=== PATIENT | male | born 1950 | race Two or more races ===

== ENCOUNTER 2017-11-28 22:26 | Inpatient (IN) | payer OTHER, MEDICAID ==
[~2017-11-28] VITALS: Ht 175.3 cm; Wt 99.8 kg
[~2017-11-28 22:26] MED LIST: ASPI-1159 PO; CARV25TA47 PO; CLON0.1T PO; HYDR-4133 PO; IBUP-2028 PO; LISI-604 PO; MULT-1146 PO; PROT20 PO; ROSU40TA PO; TRIA1CAP6 PO
[2017-11-29 02:08] LABS: BASOPHILS % 1.3 % (0.0-2.0); HEMATOCRIT. 37.1 % (42.0-52.0); HEMOGLOBIN. 12.3 g/dL (14.0-18.0); LYMPHOCYTES % 23.1 % (20.0-50.0); MEAN CORPUSCULAR HEMOGLOBIN 28.3 pg (28.0-32.0); MEAN CORPUSCULAR VOLUME 85.3 fL (80.0-94.0); MEAN PLATELET VOLUME 10.4 fl (7.4-10.4); MONOCYTES % 10.8 % (2.0-8.0); NEUTROPHILS % 60.8 % (40.0-76.0); PLATELET 220 x1000/uL (130-400); RED BLOOD CELL COUNT 4.35 mill/uL (4.7-6.1); RED CELL DISTRIBUTION WIDTH 15.5 % (11.6-14.6)
[2017-11-29 02:17] LABS: PROTHROMBIN TIME 10.6 sec (9.4-11.6)
[2017-11-29] MEDS ORDERED: ENOXAPARIN 100MG/ML SYR SUBCUT SCH (05:00)
[2017-11-29] MEDS ORDERED: CLOP75TA16 PO (09:35)
[2017-11-29] MEDS ORDERED: LANTUSUD SUBCUT (09:38)
[2017-11-29] MEDS ORDERED: DOCUSATE SODIUM 100MG CAPSULE PO PRN (09:45)
[2017-11-29] MEDS ORDERED: MAGNESIUM/ALUMINUM HYDROXIDE/SIMETHICONE 30ML UDC PO PRN (09:45)
[2017-11-29] MEDS ORDERED: DIPHENHYDRAMINE 50MG/ML VIAL IV PRN (09:45)
[2017-11-29] MEDS ORDERED: GUAIFENESIN 200MG/10ML SUGAR FREE UDC PO PRN (09:45)
[2017-11-29] MEDS ORDERED: ZOLPIDEM TARTRATE 5MG TABLET PO PRN (09:45)
[2017-11-29] MEDS ORDERED: NA PHOS,M-B/NA PHOS,DI-BA ENEMA 118ML PR PRN (09:45)
[2017-11-29] MEDS ORDERED: CLONIDINE 0.1MG TABLET PO PRN (09:45)
[2017-11-29] MEDS ORDERED: IPRATROPIUM/ALBUTEROL 0.5-3(2.5)MG/3ML NEB INH PRN (09:45)
[2017-11-29] MEDS ORDERED: ACETAMINOPHEN 325MG TABLET PO PRN (09:45)
[2017-11-29] MEDS ORDERED: NITROGLYCERIN 0.4MG TABLET SL SL PRN (09:45)
[2017-11-29] MEDS ORDERED: ONDANSETRON HCL 4MG/2ML VIAL IV PRN (09:45)
[2017-11-29] MEDS ORDERED: DEXTROSE 50% WATER 50ML SYRINGE IV PRN (10:15)
[2017-11-29 11:27] VITALS: BP 133/92
[2017-11-29 12:00] VITALS: BP 145/92
[2017-11-29] MEDS: INSULIN LISPRO 100 UNITS/ML SUBCUT SCH ×5 (12:36→22:06)
[2017-11-29] MEDS: BLOOD SUGAR DIAGNOSTIC STRIP TEST SCH ×3 (12:39→21:37)
[2017-11-29 16:00] VITALS: BP 154/91
[2017-11-29 16:18] LABS: *AMPHETAMINES SCREEN URINE NEGATIVE (NEGATIVE); *BARBITURATES SCREEN URINE NEGATIVE (NEGATIVE); *BENZODIAZEPINES SCREEN URINE NEGATIVE (NEGATIVE); *COCAINE SCREEN URINE NEGATIVE (NEGATIVE); METHADONE URINE SCREEN NEGATIVE (NEGATIVE); OPIATES URINE SCREEN NEGATIVE (NEGATIVE)
[2017-11-29 16:18] LABS: TOTAL IRON BINDING CAPACITY 323 ug/dL (250-450)
[2017-11-29 16:19] LABS: CANNABINOID URINE SCREEN NEGATIVE (NEGATIVE); PHENCYCLIDINE URINE SCREEN NEGATIVE (NEGATIVE)
[2017-11-29] MEDS: ENOXAPARIN 30MG/0.3ML SYR SUBCUT SCH (16:35)
[2017-11-29 17:06] LABS: FOLIC ACID (FOLATE) SERUM 18.1 ng/mL (>5.38)
[2017-11-29 20:00] VITALS: BP 154/97
[2017-11-29] MEDS: TRAMADOL 50MG TABLET PO PRN (21:00)
[2017-11-29] MEDS: CARVEDILOL 25MG TABLET PO SCH (21:00)
[2017-11-29] MEDS: PANTOPRAZOLE SODIUM 40 MG/VIAL IV SCH (22:00)
[2017-11-29] MEDS: INSULIN GLARGINE UD 100 UNITS/ML SYR SUBCUT SCH (22:05)
[2017-11-30] VITALS: BP 107/63
[2017-11-30 04:00] VITALS: BP 109/64
[2017-11-30] MEDS: TRAMADOL 50MG TABLET PO PRN ×3 (05:04→22:03)
[2017-11-30] MEDS: ENOXAPARIN 30MG/0.3ML SYR SUBCUT SCH ×2 (05:05→17:12)
[2017-11-30 06:38] LABS: BASOPHILS % 1.4 % (0.0-2.0); HEMATOCRIT. 39.3 % (42.0-52.0); LYMPHOCYTES % 29.5 % (20.0-50.0); MEAN CORPUSCULAR VOLUME 84.5 fL (80.0-94.0); MEAN PLATELET VOLUME 10.6 fl (7.4-10.4); MONOCYTES % 9.9 % (2.0-8.0); NEUTROPHILS % 55.2 % (40.0-76.0); PLATELET 268 x1000/uL (130-400); RED BLOOD CELL COUNT 4.65 mill/uL (4.7-6.1); RED CELL DISTRIBUTION WIDTH 15.9 % (11.6-14.6)
[2017-11-30] MEDS: BLOOD SUGAR DIAGNOSTIC STRIP TEST SCH ×4 (06:45→22:00)
[2017-11-30] MEDS: INSULIN LISPRO 100 UNITS/ML SUBCUT SCH ×7 (07:25→22:08)
[2017-11-30 08:00] VITALS: BP 118/67
[2017-11-30 08:00] LABS: CHLORIDE 104 mEq/L (98-107)
[2017-11-30] MEDS: CARVEDILOL 25MG TABLET PO SCH ×2 (09:08→21:51)
[2017-11-30] MEDS: PANTOPRAZOLE SODIUM 40 MG/VIAL IV SCH (09:08)
[2017-11-30 12:00] VITALS: BP 126/69
[2017-11-30 16:00] VITALS: BP 133/83
[2017-11-30 20:00] VITALS: BP 126/82
[2017-11-30] MEDS: INSULIN GLARGINE UD 100 UNITS/ML SYR SUBCUT SCH (23:15)
[2017-12-01] VITALS: BP 118/66
[2017-12-01 04:00] VITALS: BP 124/68
[2017-12-01] MEDS: TRAMADOL 50MG TABLET PO PRN ×2 (05:08→10:52)
[2017-12-01] MEDS: ENOXAPARIN 30MG/0.3ML SYR SUBCUT SCH (05:09)
[2017-12-01] MEDS: BLOOD SUGAR DIAGNOSTIC STRIP TEST SCH (07:07)
[2017-12-01] MEDS: INSULIN LISPRO 100 UNITS/ML SUBCUT SCH ×2 (07:23→07:24)
[2017-12-01 08:00] VITALS: BP 123/82
[2017-12-01] MEDS: CARVEDILOL 25MG TABLET PO SCH (08:32)
[2017-12-01] MEDS ORDERED: FAMOTIDINE 20MG TABLET PO SCH (09:00)
== END 2017-12-01 13:05 | disposition home or self-care (01) | DRG 843 ==
LOC: ER 22:37 → 8WST 11-29 03:55 → ENRESERV 11-29 07:28 → CANBEDREQ 11-29 08:49 → ER 11-29 08:50
PROVIDERS: ADMIT Internal Medicine; ATTEND Internal Medicine
DX: C76.52 Malignant neoplasm of left lower limb (principal); N17.0 Acute kidney failure with tubular necrosis; E87.1 Hypo-osmolality and hyponatremia; E11.22 Type 2 diabetes mellitus with diabetic chronic kidney disease; E11.51 Type 2 diabetes mellitus with diabetic peripheral angiopathy without gangrene; E66.01 Morbid (severe) obesity due to excess calories; N18.9 Chronic kidney disease, unspecified; D64.9 Anemia, unspecified; E78.00 Pure hypercholesterolemia, unspecified; E78.5 Hyperlipidemia, unspecified; I12.9 Hypertensive chronic kidney disease with stage 1 through stage 4 chronic kidney disease, or unspecified chronic kidney disease; I25.10 Atherosclerotic heart disease of native coronary artery without angina pectoris; I25.2 Old myocardial infarction; Z95.1 Presence of aortocoronary bypass graft; Z68.32 Body mass index [BMI] 32.0-32.9, adult; Z82.49 Family history of ischemic heart disease and other diseases of the circulatory system; Z86.718 Personal history of other venous thrombosis and embolism
CPT/HCPCS: 36415; 73718; 80048; 80053; 80061; 80305; 82607; 82746; 82962; 83036; 83540; 83550; 85025; 85610; 85730; 93306; 93970; 96372; 99285; C9113; J1650; J1815